=== PATIENT | female | born 1965 | race Caucasian/White ===

== ENCOUNTER 2016-11-16 15:42 | Emergency (ER) | payer BC ==
--- NOTE | 2016-11-16 15:59 | UC ---
Throat Pain/Nasal Jayson HPI - HPI Summary HPI Summary: The patient comes in today for: 1. Possible fish bone in the throat. Onset: 4 hours ago. Palliative/provocative: Nothing makes her symptoms better or worse. Quality: FB sensation. Region: Right throat. Severity: 10 Time: Constant. Associated symptoms: Event: She had a fish sandwich at the [employer] and while eating, she complains that it felt like she got a bone stuck in the right throat. No treatment. * - History of Current Complaint Chief Complaint: UCGI Stated Complaint: POSS FB IN THROAT Time Seen by Provider: 11/16/16 15:53 Hx Obtained From: Patient, Family/Lead Recoverer Hx Last Menstrual Period: had ablation ?: No - Allergies/Home Medications Allergies/Adverse Reactions: Allergies Allergy/AdvReac Type Severity Reaction Status Date / Time No Known Allergies Allergy Verified 02/12/16 10:21 PMH/Surg Hx/FS Hx/Imm Hx Previously Healthy: No - Hot flashes. Endocrine History Of: Denies: Diabetes, Thyroid Disease, Hyperthyroidism, Hypothyroidism, Dyslipidemia Cardiovascular History Of: Reports: Hypertension Denies: Cardiac Disorders, Pacemaker/ICD, Myocardial Infarction, Congestive Heart Failure, Atrial Fibrillation, Deep Vein Thrombosis, Bleeding Disorders Respiratory History Of: Denies: COPD, Asthma, Bronchitis, Pneumonia, Pulmonary Embolism GI/ History Of: Denies: Gastroesophageal Reflux, Ulcer, Gastrointestinal Bleed, Gall Bladder Disease, Kidney Stones, Diverticulitis, Renal Disease, Urosepsis Neurological History Of: Denies: TIA, CVA, Dementia, Seizures, Migraine Psychological History Of: Reports: Anxiety, Depression Denies: Bipolar Disorder, Schizophrenia, Post Traumatic Stress Disorder Cancer History Of: Denies: Lung Cancer, Colorectal Cancer, Breast Cancer, Prostate Cancer, Cervical Cancer Other History Of: Negative For: HIV, Hepatitis B, Hepatitis C, Anticoagulant Therapy - Surgical History Surgical History: Yes Surgery Procedure, Year, and Place: appy, tubal ligation, hernia, gallbladder, uterine ablation - Family History Known Family History: Positive: Hypertension Negative: Cardiac Disease - Social History Occupation: Employed Full-time Alcohol Use: None Substance Use Type: None Smoking Status (MU): Heavy Every Day Tobacco Smoker Type: Cigarettes Amount Used/How Often: 1 ppd Length of Time of Smoking/Using Tobacco: started ~ age 23 Household Exposure Type: Cigarettes - Immunization History Most Recent Influenza Vaccination: Fall 2014 Review of Systems Constitutional: Negative Skin: Negative Eyes: Negative Respiratory: Negative Cardiovascular: Negative Gastrointestinal: Negative Genitourinary: Negative All Other Systems Reviewed And Are Negative: Yes Physical Exam Triage Information Reviewed: Yes Appearance: Well-Appearing, No Pain Distress, Well-Nourished Vital Signs Reviewed: Yes Eyes: Positive: Conjunctiva Clear. Negative: Discharge ENT: Positive: Hearing grossly normal, Other: - No foreign body or trauma seen. However, her exam was hindered by her body habitus and Mallampati score of 3.. Negative: Pharyngeal erythema, Nasal congestion, Nasal drainage, TM bulging , TM dull, TM red, Tonsillar swelling, Tonsillar exudate Dental: Negative: Gross Decay/Caries @, Dental Fracture @ Neck: Positive: Supple, Nontender. Negative: Nuchal Rigidity Respiratory: Positive: Lungs clear, No respiratory distress, No accessory muscle use. Negative: Crackles, Wheezing Cardiovascular: Positive: RRR, No Murmur Abdomen Description: Positive: Nontender, No Organomegaly, Soft. Negative: Distended, Guarding Musculoskeletal: Positive: Strength Intact, ROM Intact, No Edema Neurological: Positive: Alert, Muscle Tone Normal Psychological: Positive: Age Appropriate Behavior, Consolable Skin: Negative: rashes, breakdown Diagnostics - Radiology No standard instances Xray Interpretation: No Acute Changes Radiology Interpretation Completed By: Radiologist Throat Pain/Nasal Course/Dx - Course Assessment/Plan: Patient was told that I did not find anything to explain her foreign body sensation. My recommendation is to be seen by ENT, but she wanted to wait until Saturday. - Differential Dx/Diagnosis Provider Diagnoses: Throat pain Discharge - Discharge Plan Condition: Stable Disposition: HOME Patient Education Materials: Pharyngitis (ED) Referrals: JADIEL Kearney [Primary Care Provider] - Demetri Osborne MD [Medical Doctor] -
[2016-11-16 16:21] VITALS: BP 128/99
--- NOTE | 2016-11-16 16:55 | RAD ---
Indication: Throat pain after food ingestion. 2 views of the soft tissues of the neck demonstrates no prevertebral soft tissue swelling. Multilevel degenerative disc disease of the cervical spine is noted. IMPRESSION: No prevertebral soft tissue swelling is identified.
== END 2016-11-16 17:31 | disposition home or self-care (01) ==
LOC: UCCORT 15:42
DX: R07.0 Pain in throat (principal); I10 Essential (primary) hypertension; F41.8 Other specified anxiety disorders; Z90.49 Acquired absence of other specified parts of digestive tract; F17.210 Nicotine dependence, cigarettes, uncomplicated
CPT/HCPCS: 70360; 99212; G0463

== ENCOUNTER 2018-02-01 15:51 | Emergency (ER) | payer BC ==
[2018-02-01 17:00] VITALS: BP 123/79
[2018-02-01] MEDS ORDERED: Tetracaine 0.5% OPTH.SOL 4 ML* 1 DROP BTL RIGHT EYE ONE (17:36)
[2018-02-01] MEDS ORDERED: Fluorescein Sod TOPICAL 0.6* 0.6 MG TEST OPHTHALMIC ONE (17:37)
--- NOTE | 2018-02-01 17:41 | UC ---
Eye Complaint HPI - HPI Summary HPI Summary: While using a hair color early this morning, patient accidentally got some in her right eye in the process of touching a contact lens. She states she got instant severe burning and tearing of her right eye. She immediately disposed of the contact and flushed her eye with tap water. She presents this evening because of ongoing burning and tearing. She notes the eye is very red. She admits to having some blurry vision as well. - History of Current Complaint Chief Complaint: UCEye Stated Complaint: R EYE COMPLAINT Time Seen by Provider: 02/01/18 17:34 Hx Obtained From: Patient Hx Last Menstrual Period: UTERINE ABLASION Onset/Duration: Sudden Onset Timing: Constant Severity Initially: Severe Severity Currently: Severe Pain Intensity: 0 Aggravating Factor(s): Nothing Alleviating Factor(s): Nothing Associated Signs And Symptoms: Negative: Drainage (Purulent) - Allergies/Home Medications Allergies/Adverse Reactions: Allergies Allergy/AdvReac Type Severity Reaction Status Date / Time No Known Allergies Allergy Verified 02/01/18 16:52 PMH/Surg Hx/FS Hx/Imm Hx Cardiovascular History: Hypertension Psychological History: Anxiety Other History Of: Negative For: HIV, Hepatitis B, Hepatitis C, Anticoagulant Therapy - Surgical History Surgical History: Yes Surgery Procedure, Year, and Place: appy, tubal ligation, hernia, gallbladder, uterine ablation - Family History Known Family History: Positive: None, Hypertension Negative: Cardiac Disease - Social History Occupation: Employed Full-time Alcohol Use: None Substance Use Type: None Smoking Status (MU): Heavy Every Day Tobacco Smoker Type: Cigarettes Amount Used/How Often: 1 ppd Length of Time of Smoking/Using Tobacco: started ~ age 23 Have You Smoked in the Last Year: Yes Household Exposure Type: Cigarettes - Immunization History Most Recent Influenza Vaccination: Fall 2014 Vaccination Up to Date: Yes Review of Systems Constitutional: Negative Skin: Negative Eyes: Blurred Vision - R, Eye Redness - R ENT: Negative Respiratory: Negative Cardiovascular: Negative Gastrointestinal: Negative Genitourinary: Negative Motor: Negative Neurovascular: Negative Musculoskeletal: Negative Neurological: Negative Psychological: Negative Is Patient Immunocompromised?: No All Other Systems Reviewed And Are Negative: Yes Physical Exam Triage Information Reviewed: Yes Appearance: Well-Appearing Vital Signs: Initial Vital Signs Temp 98.6 F 02/01/18 16:53 Pulse 106 02/01/18 16:53 Resp 18 02/01/18 16:53 BP 123/79 02/01/18 16:53 Pulse Ox 96 02/01/18 16:53 Vital Signs Reviewed: Yes Eyes: Positive: Other: - No periorbital edema or erythema. Visual acuity OD 20/ 50 both eyes 20/25 OS 20/50 old corrective glasses. Conjunctiva on the right is deeply injected and the eye is tearing. Left eye is clear. Pupils are equal round and reactive to light, extraocular movements are intact. Anterior chamber is clear. Upper and lower lid of the right eye was everted and no foreign body. PH of the involved eye is 7 which is within normal limits. Tetracaine placed in the right eye followed by fluorescein and there are normal abrasions ulcerations or perforations. There are no dendrites. Gentle palpation of the globe yields no tenderness in the eye is not firm. There is no auricular adenopathy. ENT: Positive: Pharynx normal, TMs normal. Negative: Nasal congestion, Nasal drainage Neck: Positive: Supple, Nontender Respiratory: Positive: Lungs clear, Normal breath sounds Cardiovascular: Positive: RRR, No Murmur Abdomen Description: Positive: Nontender, No Organomegaly, Soft Bowel Sounds: Positive: Present Musculoskeletal: Positive: ROM Intact Neurological: Positive: Alert Psychological: Positive: Age Appropriate Behavior Skin Exam: Normal Eye Complaint Course/Dx - Course Course Of Treatment: Consult was placed to Dr. Escalante ophthalmology on-call. He advised that we avoid any type of steroid use. He requests that I treat her with antibiotic ointment every 6 hours and erythromycin would be fine. He advised she may use artificial tears as needed for comfort. She is to take Tylenol or Motrin as needed for pain. He will see her in the office on Saturday. She is to call for a same-day appointment Saturday. - Differential Dx/Diagnosis Provider Diagnoses: Chemical burn right eye. Discharge - Sign-Out/Discharge Documenting (check all that apply): Discharge/Admit/Transfer - Discharge Plan Condition: Stable Disposition: HOME Patient Education Materials: Chemical Eye Devine (ED) Referrals: JADIEL Kearney [Primary Care Provider] - If Needed Emiliano Escalante MD [Medical Doctor] - 2 Days Additional Instructions: CALL DR ESCALANTE'S OFFICE Saturday(02/03/18), ADVISE HE WANTS TO SEE YOU THE SAME DAY. CALL HIM SOONER WITH ANY CONCERNS. TAKE TYLENOL OR MOTRIN PER LABEL NEEDED FOR COMFORT. USE THE ERYTHROMYCIN OINTMENT, ONE SMALL STRIP IN RIGHT EYE EVERY 6 HOURS X 5 DAYS. YOU MAY USE ARTIFICIAL TEARS NEEDED FOR COMFORT. NO CONTACT USE UNTIL CLEARED BY THE EYE DOCTOR - Billing Disposition and Condition Condition: STABLE Disposition: Home
[2018-02-01] MEDS ORDERED: Erythromycin OPTH OINT* APPLIC OINT RIGHT EYE ONE (18:30)
== END 2018-02-01 18:38 | disposition home or self-care (01) ==
LOC: UCCORT 15:51
DX: T49.4X1A Poisoning by keratolytics, keratoplastics, and other hair treatment drugs and preparations, accidental (unintentional), initial encounter (principal); T26.91XA Corrosion of right eye and adnexa, part unspecified, initial encounter; Y93.E8 Activity, other personal hygiene; Y92.002 Bathroom of unspecified non-institutional (private) residence as the place of occurrence of the external cause; I10 Essential (primary) hypertension
CPT/HCPCS: 83986; 99212; A9270-GY; G0463

== ENCOUNTER 2018-11-26 10:22 | Emergency (ER) | payer BC ==
[2018-11-26 12:06] VITALS: BP 107/53
--- NOTE | 2018-11-26 12:43 | UC ---
Knee Pain HPI - HPI Summary HPI Summary: Pt c/o gradual onset of right knee m[ain and swelling. Pt c/o of point tenderness right medial knee pain that worsens with ambulation. X 2 days. - History of Current Complaint Chief Complaint: UCLowerExtremity Stated Complaint: RIGHT KNEE PAIN Time Seen by Provider: 11/26/18 12:07 Hx Obtained From: Patient Hx Last Menstrual Period: UTERINE ABLASION ?: No Onset/Duration: Gradual Onset, Lasting Days, Still Present Severity Initially: Mild Severity Currently: Moderate Pain Intensity: 5 Character: Dull, Aching Alleviating Factor(s): Position Associated Signs And Symptoms: Positive: Swelling Able to Bear Weight: Yes - Risk Factors Septic Arthritis Risk Factor: Negative Gout Risk Factor: Age ^ 38, Obesity - Allergies/Home Medications Allergies/Adverse Reactions: Allergies Allergy/AdvReac Type Severity Reaction Status Date / Time No Known Allergies Allergy Verified 11/26/18 12:00 PMH/Surg Hx/FS Hx/Imm Hx - Additional Past Medical History Additional PMH: Denies injury or prior surgery to knee Previously Healthy: Yes Other History Of: Negative For: HIV, Hepatitis B, Hepatitis C, Anticoagulant Therapy - Surgical History Surgical History: Yes Surgery Procedure, Year, and Place: appy, tubal ligation, hernia, gallbladder, uterine ablation - Family History Known Family History: Positive: None, Hypertension Negative: Cardiac Disease - Social History Occupation: Employed Full-time Lives: With Family Alcohol Use: None Substance Use Type: None Smoking Status (MU): Heavy Every Day Tobacco Smoker Type: Cigarettes Amount Used/How Often: 1/2 ppd Length of Time of Smoking/Using Tobacco: started ~ age 23 Have You Smoked in the Last Year: Yes Household Exposure Type: Cigarettes - Immunization History Most Recent Influenza Vaccination: Fall 2014 Vaccination Up to Date: Yes Review of Systems All Other Systems Reviewed And Are Negative: Yes Constitutional: Positive: Negative Skin: Positive: Negative Eyes: Positive: Negative ENT: Positive: Negative Respiratory: Positive: Negative Cardiovascular: Positive: Negative Gastrointestinal: Positive: Negative Genitourinary: Positive: Negative Motor: Positive: Negative Neurovascular: Positive: Negative Musculoskeletal: Positive: Arthralgia - right knee, Myalgia - right knee Neurological: Positive: Negative Psychological: Positive: Negative Is Patient Immunocompromised?: No Physical Exam Triage Information Reviewed: Yes Appearance: Well-Appearing, Obese Vital Signs: Initial Vital Signs Temp 98 F 04/24/19 12:01 Pulse 107 11/26/18 12:01 Resp 18 11/26/18 12:01 BP 107/53 11/26/18 12:01 Pulse Ox 97 11/26/18 12:01 Vital Signs Reviewed: Yes Eye Exam: Normal ENT: Positive: Hearing grossly normal Neck exam: Normal Respiratory: Positive: No respiratory distress Musculoskeletal Exam: Other Musculoskeletal: Positive: Strength Intact, ROM Intact, Edema @ - slight edeme at right medial aspect of knee at joint space Neurological Exam: Normal Psychological Exam: Normal Skin Exam: Normal Diagnostics - Radiology No standard instances Radiology Interpretation Completed By: Radiologist - IMPRESSION: Fluid collection superficial to the patella measuring 2.0 x 0.7 x 3.6 cm consistent with prepatellar bursitis. Knee Pain Course/Dx - Differential Dx/Diagnosis Differential Diagnosis/HQI/PQRI: Bursitis, Internal Derangement Of Knee, Infection Provider Diagnosis: Bursitis of right knee Discharge - Sign-Out/Discharge Documenting (check all that apply): Patient Departure All imaging exams completed and their final reports reviewed: Yes - Discharge Plan Condition: Stable Disposition: HOME Patient Education Materials: Knee Bursitis (ED), Safe Use of NSAIDs (ED) Referrals: No Primary Care Phys,NOPCP [Primary Care Provider] - [facility] [facility] [Outside] - If Needed Carlos Alberto Valdivia MD [Medical Doctor] - If Needed - Billing Disposition and Condition Condition: STABLE Disposition: Home - Attestation Statements Provider Attestation: I was available for consult. This patient was seen by the E[facility]. The patient was not presented to, seen by, or examined by me. -Darlene
== END 2018-11-26 12:50 | disposition home or self-care (01) ==
LOC: UCCORT 10:22
DX: M70.51 Other bursitis of knee, right knee (principal); F17.210 Nicotine dependence, cigarettes, uncomplicated
CPT/HCPCS: 99211; G0463

== ENCOUNTER 2018-11-30 11:50 | Emergency (ER) | payer BC ==
[2018-11-30 12:16] VITALS: BP 137/97
--- NOTE | 2018-11-30 12:43 | UC ---
Lower Extremity/Ankle HPI - HPI Summary HPI Summary: right knee pain persists. Seen here 11/26 and had ultrasound. It showed some mild possible bursitis. She has had no improvement. It is medial joint line. It hurts to bend and put any pressure on it. No trauma, twisting, injury. - History of Current Complaint Chief Complaint: UCLowerExtremity Stated Complaint: RECHECK - RIGHT KNEE PAIN Time Seen by Provider: 11/30/18 12:21 Hx Obtained From: Patient Hx Last Menstrual Period: UTERINE ABLASION Onset/Duration: Gradual Onset, Lasting Days Severity Initially: Moderate Severity Currently: Moderate Pain Intensity: 7 Aggravating Factor(s): Standing, Ambulation Alleviating Factor(s): Rest, Elevation Able to Bear Weight: Yes Related History: Occupational Injury - she believes it may be from the way she sits at her desk at work with her knee flexed and internally rotated. - Allergies/Home Medications Allergies/Adverse Reactions: Allergies Allergy/AdvReac Type Severity Reaction Status Date / Time No Known Allergies Allergy Verified 11/26/18 12:00 Home Medications: Home Medications Ibuprofen 400 mg PO Q6HR PRN 11/30/18 [History Confirmed 11/30/18] Venlafaxine CAP (NF) [Effexor CAP (NF)] 75 mg PO DAILY 11/30/18 [History Confirmed 11/30/18] PMH/Surg Hx/FS Hx/Imm Hx Previously Healthy: No - obesity Other History Of: Negative For: HIV, Hepatitis B, Hepatitis C, Anticoagulant Therapy - Surgical History Surgical History: Yes Surgery Procedure, Year, and Place: appy, tubal ligation, hernia, gallbladder, uterine ablation - Family History Known Family History: Positive: None, Hypertension Negative: Cardiac Disease - Social History Alcohol Use: None Substance Use Type: None Smoking Status (MU): Heavy Every Day Tobacco Smoker Type: Cigarettes Amount Used/How Often: 1/2 ppd Length of Time of Smoking/Using Tobacco: started ~ age 23 Have You Smoked in the Last Year: Yes Household Exposure Type: Cigarettes - Immunization History Most Recent Influenza Vaccination: Fall 2014 Vaccination Up to Date: Yes Review of Systems All Other Systems Reviewed And Are Negative: Yes Musculoskeletal: Positive: Arthralgia Physical Exam Triage Information Reviewed: Yes Appearance: Pain Distress - obvious knee stiffness with walking into the room., Obese Vital Signs: Initial Vital Signs Temp 99.4 F 11/30/18 12:10 Pulse 84 11/30/18 12:10 Resp 18 11/30/18 12:10 BP 137/97 11/30/18 12:10 Pulse Ox 98 11/30/18 12:10 Vital Signs Reviewed: Yes Eyes: Positive: Conjunctiva Clear ENT: Positive: Normal ENT inspection Neck: Negative: Nuchal Rigidity Respiratory: Positive: No respiratory distress Cardiovascular: Positive: Brisk Capillary Refill Abdomen Description: Negative: Distended Musculoskeletal: Positive: Other: - Right knee joint line tenderness. Not hot or red. No effusion. No pre patellar pain/tenderness. No pain or laxity with valgus or varus stress. Flexion to 90 degrees to 0 degrees. Neurological: Positive: Alert, Muscle Tone Normal. Negative: Fatigued Psychological: Positive: Age Appropriate Behavior Skin: Negative: Rashes Lower Extremity Course/Dx - Course Course Of Treatment: No signs of infection or effusion. It is isolated to medial joint line. Likely meniscus injury. pain meds and referral to ortho for possible MRI. X rays not indicated without trauma. - Differential Dx/Diagnosis Differential Diagnosis/HQI/PQRI: Arthritis, Bursitis, Cellulitis, Compartment Syndrome, Contusion, Foreign Body, Gout, Osteomyelitis, Sprain, Strain, Tendonitis, Tenosynovitis Provider Diagnosis: Knee pain, left Discharge - Sign-Out/Discharge Documenting (check all that apply): Patient Departure All imaging exams completed and their final reports reviewed: No Studies - Discharge Plan Condition: Good Disposition: HOME Prescriptions: Naproxen [Naproxen 500 mg tab] 500 mg PO BID #40 tablet traMADol TAB* [Ultram*] 50 mg PO Q12H PRN #30 tab MDD 2 PRN Reason: Pain Patient Education Materials: Knee Pain (ED), Arthralgia (ED) Forms: *Work Release Referrals: No Primary Care Phys,NOPCP [Primary Care Provider] - David Branch MD [Medical Doctor] - 1 Day - Billing Disposition and Condition Condition: GOOD Disposition: Home
== END 2018-11-30 12:42 | disposition home or self-care (01) ==
LOC: UCCORT 11:50
DX: M25.562 Pain in left knee (principal); M25.561 Pain in right knee; E66.9 Obesity, unspecified; F17.210 Nicotine dependence, cigarettes, uncomplicated
CPT/HCPCS: 99212; G0463

== ENCOUNTER 2020-09-15 06:30 | Observation (INO) ==
[~2020-09-15 06:30] MED LIST: Buffered Lidocaine 1% SYRIN 1 ml INTRADERM ONE
[2020-09-15] MEDS ORDERED: Midazolam 5 mg/5 ml VIAL 1 mg/ml 5 ml VIAL (5 mg) ONE (06:58)
[2020-09-15] MEDS ORDERED: fentaNYL 100 mcg/2 ml 50 MCG/ML VIAL ONE ×3 (06:58→11:00)
[2020-09-15] MEDS ORDERED: Rocuronium 50 mg VIAL 10 mg/ml 5 ml VIAL (50 mg) ONE ×2 (07:32→08:31)
[2020-09-15] MEDS: Lactated Ringers 1000 ml BAG 1,000 ML IV SCH ×2 (07:35→12:21)
[2020-09-15] MEDS ORDERED: ceFAZolin 2 GM PREMIX 2 GM/50 ML BAG ONE (07:41)
[2020-09-15] MEDS ORDERED: Lidocaine 2% PF 5 ML VIAL ONE (07:41)
[2020-09-15] MEDS ORDERED: ROPIVACAINE 5 MG/ML 30 ML BTL (0.5%) ONE (07:43)
[2020-09-15] MEDS ORDERED: Midazolam 2 mg/2 ml VIAL 1 mg/ml 2 ml VIAL (2 mg) ONE (07:57)
[2020-09-15] MEDS ORDERED: Phenylephrine 40 mcg/mL 10mL (400mcg) SYRINGE ONE (08:08)
[2020-09-15] MEDS ORDERED: Ondansetron 4 mg VIAL 2 MG/ML 2 ml VIAL ONE (08:09)
[2020-09-15] MEDS ORDERED: Dexamethasone IV 4 MG/ML VIAL 1 ml VIAL ONE (08:09)
[2020-09-15] MEDS ORDERED: HYDROmorphone 1 MG/1 ML SYRINGE ONE (08:09)
[2020-09-15] MEDS ORDERED: EPHEDrine (Pressors) 50 MG/ML VIAL ONE (08:40)
[2020-09-15] MEDS ORDERED: Naloxone 0.4 mg VIAL 0.4 mg/ml 1 ml VIAL IV PRN (10:12)
[2020-09-15] MEDS ORDERED: diPHENhydraMINE IV 50 MG/ML 1 ml VIAL (BENADRYL) IV PRN ×2 (10:12→10:37)
[2020-09-15] MEDS ORDERED: Propofol 10 MG/ML 20 ML BTL ONE ×2 (10:18→10:19)
[2020-09-15] MEDS ORDERED: diPHENhydraMINE 25 mg TAB PO PRN (10:37)
[2020-09-15] MEDS ORDERED: Morphine 2 MG/ML SYRINGE IV PRN (10:37)
[2020-09-15] MEDS ORDERED: Ondansetron 4 mg VIAL 2 MG/ML 2 ml VIAL IV PRN (10:37)
[2020-09-15] MEDS ORDERED: Lactulose 30 ml UDC PO PRN (10:37)
[2020-09-15] MEDS ORDERED: Magnesium Hydroxide LIQ 30 ML UDC PO PRN (10:37)
[2020-09-15] MEDS ORDERED: Ondansetron ODT 4 mg TAB 4 MG TAB PO PRN (10:37)
[2020-09-15] MEDS ORDERED: Lactated Ringers 1000 ml BAG 1,000 ML IV SCH (11:00)
[2020-09-15] MEDS: fentaNYL 100 mcg/2 ml 50 MCG/ML VIAL IV PRN ×3 (11:01→11:35)
[2020-09-15] MEDS ORDERED: ceFAZolin 1 GM ADVAN 1 GM in NS 0.9% 50 ML 50 ML IVPB SCH (16:00)
[2020-09-15 16:29] VITALS: BP 115/46
[2020-09-15] MEDS ORDERED: Magnesium Hydroxide LIQ 30 ML UDC PO SCH (21:00)
[2020-09-16] MEDS ORDERED: Vitamin THERAPEUTIC TAB PO SCH (09:00)
[2020-09-16] MEDS ORDERED: Venlafaxine XR 75 mg PO SCH (09:00)
== END 2020-09-15 17:50 | disposition home or self-care (01) ==
LOC: SSU 06:30 → OR 06:30 → EDSTATUS 15:30
PROVIDERS: ADMIT Orthopaedic Surgery Adult Reconstructive Orthopaedic Surgery; ATTEND Orthopaedic Surgery Adult Reconstructive Orthopaedic Surgery

== ENCOUNTER 2023-12-31 05:33 | Inpatient (IN) ==
[~2023-12-31 05:33] MED LIST changes: -Buffered Lidocaine 1% SYRIN 1 ml INTRADERM ONE; +Metoclopramide 5 MG/ML VIAL (10 mg) IV PRN; +NS 0.45% 1000 ml BAG 1,000 ML IV SCH; +Naloxone 0.4 mg VIAL 0.4 mg/ml 1 ml VIAL IV PRN; +Ondansetron 4 mg VIAL 2 MG/ML 2 ml VIAL IV PRN; +fentaNYL 100 mcg/2 ml 50 MCG/ML VIAL IV PRN
[2023-12-31] MEDS: Acetaminophen IV 1 GM/100ML 1,000 MG/100 ML BAG IV ONE (05:49)
[2023-12-31] MEDS: Buffered Lidocaine 1% SYRIN 1 ml INTRADERM ONE (05:49)
[2023-12-31] MEDS: Scopolamine 1 mg/72hr PATCH TRANSDERM ONE (05:50)
[2023-12-31] MEDS ORDERED: ceFAZolin 2 GM PREMIX 2 GM/50 ML BAG ONE (06:00)
[2023-12-31] MEDS ORDERED: Tranexamic Acid 1 GM/100ML BAG 2,000 MG/200 ML BAG IV ONE (06:00)
[2023-12-31 06:12] LABS: Rapid COVID-19 Molecular Undetected (Undetected)
[2023-12-31] MEDS: Lactated Ringers 1000 ml BAG 1,000 ML IV SCH ×2 (06:15→13:12)
[2023-12-31] MEDS ORDERED: Midazolam 2 mg/2 ml VIAL 1 mg/ml 2 ml VIAL (2 mg) ONE ×2 (06:18→07:11)
[2023-12-31] MEDS ORDERED: fentaNYL 100 mcg/2 ml 50 MCG/ML VIAL ONE ×3 (06:18→08:38)
[2023-12-31] MEDS ORDERED: Sterile Water for Inj 10 ML ONE (06:19)
[2023-12-31] MEDS ORDERED: Levalbuterol HFA INHALER MDI ONE (06:19)
[2023-12-31] MEDS ORDERED: Ondansetron 4 mg VIAL 2 MG/ML 2 ml VIAL ONE (06:19)
[2023-12-31] MEDS ORDERED: Propofol 10 MG/ML 20 ML BTL ONE (06:19)
[2023-12-31] MEDS ORDERED: Dexamethasone IV 4 MG/ML VIAL 1 ml VIAL ONE ×2 (06:19→07:11)
[2023-12-31] MEDS ORDERED: Propofol 0 MG/0 ML BTL ONE (06:33)
[2023-12-31] MEDS ORDERED: Phenylephrine IV 10 MG/ML 1 ml VIAL ONE (06:33)
[2023-12-31] MEDS ORDERED: Lidocaine 2% PF 5 ML VIAL ONE (06:42)
[2023-12-31] MEDS ORDERED: ROPIVACAINE 5 MG/ML 30 ML BTL (0.5%) ONE ×2 (07:11→07:20)
[2023-12-31] MEDS ORDERED: Rocuronium 50 mg VIAL 10 mg/ml 5 ml VIAL (50 mg) ONE ×2 (07:33→08:05)
[2023-12-31] MEDS ORDERED: HYDROmorphone 0.5 MG/0.5 ML SYRINGE ONE (09:05)
[2023-12-31] MEDS ORDERED: Labetalol IV 5 MG/ML 20 ml VIAL ONE (09:17)
[2023-12-31] MEDS ORDERED: Lactulose 30 ml UDC PO PRN (10:57)
[2023-12-31] MEDS ORDERED: Morphine 2 MG/ML SYRINGE IV PRN (10:57)
[2023-12-31] MEDS ORDERED: Ondansetron ODT 4 mg TAB 4 MG TAB PO PRN (10:57)
[2023-12-31] MEDS ORDERED: Calcium Carb (TUMS) 500 mg CHEW TAB PO PRN (10:57)
[2023-12-31] MEDS ORDERED: Ondansetron 4 mg VIAL 2 MG/ML 2 ml VIAL IV PRN (10:57)
[2023-12-31] MEDS ORDERED: Magnesium Hydroxide LIQ 30 ML UDC PO PRN (10:57)
[2023-12-31 14:12] VITALS: BP 129/79
[2023-12-31] MEDS: ceFAZolin 2 GM in NS PREMIX 2 GM/100 ML BAG IVPB SCH (15:20)
[2023-12-31] MEDS ORDERED: Magnesium Hydroxide LIQ 30 ML UDC PO SCH (21:00)
[2024-01-01] MEDS ORDERED: Vitamin THERAPEUTIC TAB PO SCH (09:00)
== END 2023-12-31 16:18 | disposition home or self-care (01) | DRG 302 ==
LOC: AA 05:33 → SSU 10:58
PROVIDERS: ADMIT Orthopaedic Surgery Adult Reconstructive Orthopaedic Surgery; ATTEND Orthopaedic Surgery Adult Reconstructive Orthopaedic Surgery